=== PATIENT | female | born 1960 | race Caucasian/White ===

== ENCOUNTER 2019-02-23 16:02 | Emergency (ER) | payer OTHER ==
[~2019-02-23] VITALS: Ht 165.1 cm; Wt 107.7 kg
[2019-02-23 16:10] VITALS: Ht 165.1 cm; Wt 107.7 kg
--- NOTE | 2019-02-23 16:59 | ERD ---
ER Documentation Chief Complaint Chief Complaint sent fr clinic r/o DVT, Rt lower calf pain, no visible redness HPI The patient is a 58-year-old female, presenting to the ER because of right leg pain for the last 4-day, seen by her physician who sent her to the ER for ultrasound of the leg to rule out DVT, denies trauma, denies fever, chills, neck pain, chest pain, dyspnea, hemoptysis, abdominal pain, vomiting, dizzy, diarrhea. She does not smoke nor drink Past medical history: Hypertension, diabetes mellitus Past surgical history: None ROS All systems reviewed and are negative except as per history of present illness. Medications Home Meds Active Scripts Tramadol HCl (Tramadol HCl) 50 Mg Tablet, 50 MG PO Q6 PRN for PAIN, #15 TAB Prov:THU ORTIZ MD 02/23/19 Reported Medications Montelukast Sodium* (Montelukast Sodium*) 10 Mg Tablet, 10 MG PO QHS, #30 TAB 02/23/19 Losartan Potassium* (Losartan Potassium*) 100 Mg Tablet, 100 MG PO DAILY, TAB 02/23/19 Levothyroxine Sodium* (Levothyroxine Sodium*) 112 Mcg Tablet, 112 MCG PO BEFORE BREAKFAST, #30 TAB 02/23/19 Metformin Hcl* (Metformin Hcl*) 500 Mg Tablet, 500 MG PO WITH BREAKFAST DINNE, #60 TAB 02/23/19 Allergies Allergies: Coded Allergies: No Known Allergy (Unverified , 02/23/19) Physical Exam Vitals Vital Signs Date Temp Pulse Resp B/P (MAP) Pulse Ox O2 O2 Flow FiO2 Time Delivery Rate 02/23/19 99.3 80 18 179/85 96 16:10 (116) Physical Exam Const: No acute distress. Head: Atraumatic. Eyes: Normal Conjunctiva. ENT: Normal External Ears, Nose and Mouth. Neck: Full range of motion. No meningismus. Resp: Clear to auscultation bilaterally. Cardio: Regular rate and rhythm. Abd: Soft, non distended, normal bowel sounds, non tender. Skin: No petechiae or rashes. Back: No midline or flank tenderness. Ext: No cyanosis, or edema. Mild anterior leg tenderness, no calf tenderness Neur: Awake and alert. No focal deficit Psych: Normal Mood and Affect. Results 24 hrs Current Medications Medications Dose Sig/Indra Start Time Status Last (Trade) Ordered Route PRN Stop Time Admin Dose Reason Admin 1 tab ONCE ONCE 02/23/19 DC 02/23/19 Acetaminophen PO 17:30 17:16 / 02/23/19 17:31 Hydrocodone Bitart ([place] (5/325)) Ondansetron 4 mg ONCE STAT 02/23/19 DC 02/23/19 HCl (Zofran ODT 17:06 17:16 Odt) 02/23/19 17:09 Procedures/MDM [place] [address] Radiology Main Line: [phone] DIAGNOSTIC IMAGING REPORT Patient: ALE MONTERO : 1960 Age: 58 Sex: F MR #: [id number] DOS: 02/23/19 1706 Ordering MD: THU ORTIZ MD Location: E/R Room/Bed: PROCEDURE: US Lower extremity Venous. CLINICAL INDICATION: Right leg edema, pain TECHNIQUE: Multiple sonographic images of the right lower extremity deep venous system was obtained utilizing grayscale, color-flow, compressive sonography and doppler imaging with augmentation. The images were reviewed on a PACS workstation. COMPARISON: None. FINDINGS: There is normal compressibility and flow within the right common femoral, femoral, posterior tibial, peroneal and popliteal veins. RPTAT: AA IMPRESSION: No sonographic evidence for deep venous thrombosis. .Kofi France MD, MD Date Time Electronically viewed and signed by .Kofi France MD, on 02/23/2019 17:22 .S/ CC: THU ORTIZ MD [id number] [place] [address] Radiology Main Line: [phone] DIAGNOSTIC IMAGING REPORT Patient: ALE MONTERO : 1960 Age: 58 Sex: F MR #: [id number] DOS: 02/23/19 1706 Ordering MD: THU ORTIZ MD Location: E/R Room/Bed: PROCEDURE: XR Tibia and Fibula. CLINICAL INDICATION: Right leg pain TECHNIQUE: AP and lateral of the right tibia and fibula were obtained. COMPARISON: None available FINDINGS: There is normal mineralization and alignment. No fracture or osseous lesion is identified. There are normal soft tissues without evidence of soft tissue swelling or radiopaque foreign body. RPTAT:HJJR IMPRESSION: Unremarkable right tibia and fibula series. Physician Jose Date Time Electronically viewed and signed by Physician Jose on 02/23/2019 17:40 JR/ CC: THU ORTIZ MD [id number] MEDICAL MAKING DECISION: The patient is a 58-year-old female, presenting with acute right leg pain of unclear etiology, was treated with [place] 5 mg p.o. for pain and Zofran ODT for nausea with good response, is stable for outpatient follow-up The differential diagnoses considered include but are not limited to fracture, contusion, sprain, DVT Departure Diagnosis: Primary Impression: Leg pain, right Condition: Good Comments She was discharged with Ultram I discussed the findings with the patient. I advised the patient to follow-up with the primary physician in about 2-3 days, sooner if needed and return if any concern. Disclaimer: Inadvertent spelling and grammatical errors are likely due to EHR/dictation software use and do not reflect on the overall quality of patient care. Also, please note that the electronic time recorded on this note does not necessarily reflect the actual time of the patient encounter. THU ORTIZ MD Feb 23, 2019 16:59
[2019-02-23] MEDS ORDERED: ONDANSETRON (ODT) 4 MG TAB ODT STA (17:06)
[2019-02-23] MEDS ORDERED: HYDROCODONE/APAP (5/325) TAB PO ONE (17:30)
[2019-02-23] MEDS ORDERED: LEVO112T57 PO (17:34)
[2019-02-23] MEDS ORDERED: LOSA100T15 PO (17:34)
[2019-02-23] MEDS ORDERED: METF500T24 PO (17:34)
[2019-02-23] MEDS ORDERED: MONT10TA24 PO (17:35)
[2019-02-23] MEDS ORDERED: TRAM50TA2 PO (17:58)
[2019-02-23 18:30] VITALS: BP 169/85; PULSE 84; RESP 20
== END 2019-02-23 18:34 | disposition home or self-care (01) ==
LOC: E/R 16:02
DX: M79.604 Pain in right leg (principal); I10 Essential (primary) hypertension; E11.9 Type 2 diabetes mellitus without complications; Z79.84 Long term (current) use of oral hypoglycemic drugs
CPT/HCPCS: 73590; 93971